=== PATIENT | female | born 1950 | race Caucasian/White ===

== ENCOUNTER 2018-08-25 14:51 | Emergency (ER) | payer OTHER ==
[2018-08-25 15:55] LABS: Absolute Lymphocytes (CBC) 1.1 K/uL (0.7-4.9); Absolute Monocytes 0.5 K/uL (0.1-1.3); Absolute Neutrophil 3.4 K/uL (1.8-8.0); Basophils % 0.6 % (0-1.3); Eosinophils % 1.3 % (0-4.4); Hematocrit 40.8 % (36.0-45.0); Lymphocytes % 20.9 % (15.3-44.8); MPV 7.7 fL (7.6-11.3); Monocytes % 10.5 % (3.3-12.3); RBC Red Blood Cell Count 4.63 M/uL (3.86-4.86)
[2018-08-25] MEDS ORDERED: MAGNE/ALUM HYDROXD 30 ML UCUP ONE (15:55)
[2018-08-25] MEDS ORDERED: LIDOCAINE VISCOUS 2% SOLN 15 ML UDC ONE (15:55)
[2018-08-25 16:09] LABS: ALT/SGPT 69 U/L (12-78); AST/SGOT 78 U/L (15-37); Albumin 3.6 g/dL (3.4-5.0); Alkaline Phosphatase 86 U/L (45-117); BUN Blood Urea Nitrogen 17 mg/dL (7-18); Bicarbonate 28 mmol/L (21-32); Bilirubin Direct 0.4 mg/dL (0-0.2); Bilirubin Total 0.7 mg/dL (0.2-1.0); Glucose Level 146 mg/dL (74-106); Potassium 3.8 mmol/L (3.5-5.1); Protein, Total 7.1 g/dL (6.4-8.2); Sodium Level 138 mmol/L (136-145); Troponin (Emerg Dept Use Only) < 0.02 ng/mL (0.0-0.045)
--- NOTE | 2018-08-25 16:35 | RAD REPORT ---
EXAM DESCRIPTION: RAD - Chest Pa And Lat (2 Views) - 08/25/2018 3:51 pm CLINICAL HISTORY: Cough, chest pain COMPARISON: None. TECHNIQUE: PA and lateral views of the chest were obtained. FINDINGS: The lungs are clear. Heart size is normal and central vasculature is within normal limit s. No pleural effusion or pneumothorax seen. No acute bony finding noted. No aortic abnormality. IMPRESSION: No acute cardiopulmonary process.
--- NOTE | 2018-08-25 17:27 | EDPHYS ---
Physician Documentation [facility] Name: Michael Sanchez Age: 68 yrs Sex: Female : 1950 Arrival Date: 08/25/2018 Time: 14:53 Bed 30 Private MD: Shane Murcia V ED Physician Rober Ling HPI: 08/25 15:52 This 68 yrs old Female presents to ER via Ambulatory with complaints of snw Shortness Of Breath, Chest Wall Pain. 15:52 The patient has shortness of breath s/p coughing spell, tenderness to breast bone, snw worsens with movement. Onset: The symptoms/episode began/occurred suddenly. Duration: The symptoms are continuous. The patient's shortness of breath has no apparent modifying factors. Associated signs and symptoms: The patient has no apparent associated signs or symptoms. Severity of symptoms: At their worst the symptoms were moderate. The patient has not experienced similar symptoms in the past. The patient has been recently seen by a physician: a family practitioner, a psychiatrist. Historical: - PMHx: 15:18 Bipolar disorder; Diabetes - NIDDM; Hyperlipidemia; Hypertension; sg - PSHx: 15:18 Craniotomy; sg - Immunization history:: Adult Immunizations up to date. - Social history:: Smoking status: Patient/guardian denies using tobacco. - Ebola Screening: : Patient negative for fever greater than or equal to 101.5 degrees Fahrenheit, and additional compatible Ebola Virus Disease symptoms Patient denies exposure to infectious person Patient denies travel to an Ebola-affected area in the 21 days before illness onset No symptoms or risks identified at this time. ROS: 15:51 Constitutional: Negative for fever, chills, and weight loss, Eyes: Negative for injury, snw pain, redness, and discharge, ENT: Negative for injury, pain, and discharge, Neck: Negative for injury, pain, and swelling, Respiratory: Negative for shortness of breath, cough, wheezing, and pleuritic chest pain, Abdomen/GI: Negative for abdominal pain, nausea, vomiting, diarrhea, and constipation, Back: Negative for injury and pain, : Negative for injury, bleeding, discharge, and swelling, MS/Extremity: Negative for injury and deformity, Skin: Negative for injury, rash, and discoloration, Neuro: Negative for headache, weakness, numbness, tingling, and seizure, Psych: Negative for depression, anxiety, suicide ideation, homicidal ideation, and hallucinations. 15:51 Cardiovascular: Positive for chest pain, with movement, of the xyphoid area. Exam: 15:51 Constitutional: This is a well developed, well nourished patient who is awake, alert, snw and in no acute distress. Head/Face: Normocephalic, atraumatic. Eyes: Pupils equal round and reactive to light, extra-ocular motions intact. Lids and lashes normal. Conjunctiva and sclera are non-icteric and not injected. Cornea within normal limits. Periorbital areas with no swelling, redness, or edema. ENT: Nares patent. No nasal discharge, no septal abnormalities noted. Tympanic membranes are normal and external auditory canals are clear. Oropharynx with no redness, swelling, or masses, exudates, or evidence of obstruction, uvula midline. Mucous membranes moist. Neck: Trachea midline, no thyromegaly or masses palpated, and no cervical lymphadenopathy. Supple, full range of motion without nuchal rigidity, or vertebral point tenderness. No Meningismus. Chest/axilla: Normal chest wall appearance and motion. Nontender with no deformity. No lesions are appreciated. Cardiovascular: Regular rate and rhythm with a normal S1 and S2. No gallops, murmurs, or rubs. Normal PMI, no JVD. Minimal peripheral edema to ankles. No pulse deficits. Respiratory: Lungs have equal breath sounds bilaterally, clear to auscultation and percussion. No rales, rhonchi or wheezes noted. No increased work of breathing, no retractions or nasal flaring. Abdomen/GI: Soft, non-tender, with normal bowel sounds. No distension or tympany. No guarding or rebound. No evidence of tenderness throughout. Back: No spinal tenderness. No costovertebral tenderness. Full range of motion. Skin: Warm, dry with normal turgor. Normal color with no rashes, no lesions, and no evidence of cellulitis. MS/ Extremity: Pulses equal, no cyanosis. Neurovascular intact. Full, normal range of motion. Neuro: Awake and alert, GCS 15, oriented to person, place, time, and situation. Cranial nerves II-XII grossly intact. Motor strength 5/5 in all extremities. Sensory grossly intact. Cerebellar exam normal. Normal gait. Vital Signs: 15:00 BP 152 / 77; Pulse 87; Resp 19; Temp 98.2; Pulse Ox 99% on R/A; sg 16:08 BP 140 / 88; Pulse 74; Resp 16 S; Pulse Ox 96% on R/A; rv 16:30 BP 166 / 88; Pulse 75; Resp 17 S; Pulse Ox 97% on R/A; rv 17:00 BP 161 / 97; Pulse 78; Resp 15 S; Pulse Ox 96% on R/A; rv 17:30 BP 132 / 101; Pulse 74; Resp 16 S; Pulse Ox 98% on R/A; rv MDM: 15:07 Patient medically screened. [email or web address] 17:27 Data reviewed: vital signs, nurses notes. Data interpreted: Pulse oximetry: on room air snw is 96 %. Interpretation: acceptable. Counseling: I had a detailed discussion with the patient and/or guardian regarding: the historical points, exam findings, and any diagnostic results supporting the discharge/admit diagnosis, lab results, radiology results, the need for outpatient follow up, to return to the emergency department if symptoms worsen or persist or if there are any questions or concerns that arise at home. Special discussion: I have referred the patient to see his PCP for further evaluation of high blood pressure. Based on the history and exam findings, there is no indication for further emergent testing or inpatient evaluation. I discussed with the patient/guardian the need to see the primary care provider for further evaluation of the symptoms. 08/25 15:31 Order name: Troponin (emerg Dept Use Only); Complete Time: 16:14 snw 08/25 15:31 Order name: Chem 7; Complete Time: 16:14 snw 08/25 15:31 Order name: LFT's; Complete Time: 16:14 snw 08/25 15:31 Order name: CBC with Diff; Complete Time: 16:14 snw 08/25 15:31 Order name: Depakote; Complete Time: 16:14 snw 08/25 15:31 Order name: Chest Pa And Lat (2 Views) XRAY; Complete Time: 16:48 snw 08/25 15:32 Order name: SL; Complete Time: 16:06 snw Administered Medications: 15:54 Drug: GI Cocktail without - (Maalox Suspension 30 ml, Lidocaine Liquid 2 % 15 rv ml) Route: PO; 16:07 Follow up: Response: Pain is decreased rv Disposition: 08/25/18 17:26 Discharged to Home. Impression: Chest pain, unspecified, Gastro-esophageal reflux disease. - Condition is Stable. - Discharge Instructions: Nonspecific Chest Pain, Gastroesophageal Reflux Disease, Adult, Hypertension, [place] Diet. - Medication Reconciliation Form, Thank You Letter, Antibiotic Education, Prescription Opioid Use form. - Follow up: Shane Murcia MD; When: 2 - 3 days; Reason: Recheck today's complaints, Continuance of care, Re-evaluation by your physician. Follow up: Emergency Department; When: As needed; Reason: Worsening of condition. Addendum: 08/27/2018 07:40 Co-signature as Attending Physician, Rober Ling MD I agree with the assessment and c chavarria plan of care. Signatures: Dispatcher [employer] EDNirmal Briones, RN Rober Mena MD MD cha Therrien, Shelly, FILM TOUCH UP INSPECTOR-C FILM TOUCH UP INSPECTOR-Csnw Elias Schumacher, RN RN rv Corrections: (The following items were deleted from the chart) 08/25 17:38 17:26 08/25/2018 17:26 Discharged to Home. Impression: Chest pain, unspecified; rv Gastro-esophageal reflux disease. Condition is Stable. Forms are Medication Reconciliation Form, Thank You Letter, Antibiotic Education, Prescription Opioid Use. Follow up: Shane Murcia; When: 2 - 3 days; Reason: Recheck today's complaints, Continuance of care, Re-evaluation by your physician. Follow up: Emergency Department; When: As needed; Reason: Worsening of condition. snw
--- NOTE | 2018-08-25 17:27 | ER ---
Nurse's Notes [facility] Name: Michael Sanchez Age: 68 yrs Sex: Female : 1950 Arrival Date: 08/25/2018 Time: 14:53 Bed 30 Private MD: Shane Murcia V Diagnosis: Chest pain, unspecified;Gastro-esophageal reflux disease Presentation: 08/25 15:00 Presenting complaint: Patient states: Cassandra had chest pain that is worsened by this sg cough, called urgent care and they said it would better to be evaluated by the ER if it is cardiac related, pt complains of having a cough so unsure if the pain is from the heart or just the chest wall, denies N/V/D/Fever. Transition of care: patient was not received from another setting of care. Onset of symptoms was August 25, 2018. Risk Assessment: Do you want to hurt yourself or someone else? Patient reports no desire to harm self or others. Initial Sepsis Screen: Does the patient meet any 2 criteria? No. Patient's initial sepsis screen is negative. Does the patient have a suspected source of infection? Yes: Productive cough/pneumonia. Care prior to arrival: None. 15:00 Method Of Arrival: Ambulatory sg 15:00 Acuity: CHENG 3 sg Triage Assessment: 15:21 Respiratory: Reports shortness of breath Onset: The symptoms/episode began/occurred rv just prior to arrival, the patient has mild shortness of breath. Historical: - PMHx: 15:18 Bipolar disorder; Diabetes - NIDDM; Hyperlipidemia; Hypertension; sg - PSHx: 15:18 Craniotomy; sg - Immunization history:: Adult Immunizations up to date. - Social history:: Smoking status: Patient/guardian denies using tobacco. - Ebola Screening: : Patient negative for fever greater than or equal to 101.5 degrees Fahrenheit, and additional compatible Ebola Virus Disease symptoms Patient denies exposure to infectious person Patient denies travel to an Ebola-affected area in the 21 days before illness onset No symptoms or risks identified at this time. Screenin:20 Abuse screen: Denies threats or abuse. Denies injuries from another. Nutritional rv screening: No deficits noted. Tuberculosis screening: No symptoms or risk factors identified. Fall Risk None identified. Assessment: 15:20 General: Appears in no apparent distress. comfortable, Behavior is calm, cooperative. rv Pain: Denies pain. Neuro: Level of Consciousness is awake, alert, obeys commands, Oriented to person, place, time, situation. Cardiovascular: Rhythm is regular. Respiratory: Airway is patent Respiratory effort is even, Breath sounds are clear bilaterally. GI: No signs and/or symptoms were reported involving the gastrointestinal system. : No signs and/or symptoms were reported regarding the genitourinary system. EENT: No signs and/or symptoms were reported regarding the EENT system. Derm: Skin is intact. Musculoskeletal: No signs and/or symptoms reported regarding the musculoskeletal system. Vital Signs: 15:00 BP 152 / 77; Pulse 87; Resp 19; Temp 98.2; Pulse Ox 99% on R/A; sg 16:08 BP 140 / 88; Pulse 74; Resp 16 S; Pulse Ox 96% on R/A; rv 16:30 BP 166 / 88; Pulse 75; Resp 17 S; Pulse Ox 97% on R/A; rv 17:00 BP 161 / 97; Pulse 78; Resp 15 S; Pulse Ox 96% on R/A; rv 17:30 BP 132 / 101; Pulse 74; Resp 16 S; Pulse Ox 98% on R/A; rv ED Course: 14:53 Patient arrived in ED. as 14:53 Shane Murcia MD is Private Physician. as 15:06 Anna Moreno FNP-C is [facility]. snw 15:06 Rober Ling MD is Attending Physician. snw 15:17 Triage completed. sg 15:18 Arm band placed on. sg 15:21 Patient has correct armband on for positive identification. Placed in gown. Bed in low rv position. Call light in reach. Side rails up X2. Adult w/ patient. welt edge rounder on. Pulse ox on. NIBP on. 15:45 Depakote Sent. rv 15:45 CBC with Diff Sent. rv 15:45 LFT's Sent. rv 15:45 Chem 7 Sent. rv 15:45 Troponin (emerg Dept Use Only) Sent. rv 15:45 Chest Pa And Lat (2 Views) XRAY Sent. rv 15:45 No provider procedures requiring assistance completed. Inserted saline lock: 20 gauge rv in right forearm, using aseptic technique. Blood collected. 15:50 Chest Pa And Lat (2 Views) XRAY In Process Unspecified. EDMS 17:24 Shane Murcia MD is Referral Physician. snw 17:37 IV discontinued, bleeding controlled, No redness/swelling at site. Pressure dressing rv applied. Administered Medications: 15:54 Drug: GI Cocktail without - (Maalox Suspension 30 ml, Lidocaine Liquid 2 % 15 rv ml) Route: PO; 16:07 Follow up: Response: Pain is decreased rv Outcome: 17:26 Discharge ordered by . snw 17:38 Discharged to home ambulatory. rv 17:38 Condition: good 17:38 Discharge instructions given to patient, Instructed on discharge instructions, follow up and referral plans. Demonstrated understanding of instructions, follow-up care. 17:38 Patient left the ED. rv Signatures: Dispatcher [employer] EDMS Nirmal Ashton, RN RN Anna Vizcarra, BOOTH MANAGER-C BOOTH MANAGER-Csnw Dahlia Pandey Ronaldo RN RN rv Corrections: (The following items were deleted from the chart) 16:10 16:09 BP 127 / 63; Pulse 74bpm; Resp 15bpm; Spontaneous; Pulse Ox 98% RA; rv rv
--- NOTE | 2018-08-26 12:36 | EKG ---
Test Date: 2018-08-25 Test Time: 15:07:30 Pick Up Driver: MEASUREMENT RESULTS: Intervals: Rate: 77 DC: 174 QRSD: 88 QT: 386 QTc: 436 [place]: P: 67 DC: 174 QRS: -20 T: 62 INTERPRETIVE STATEMENTS: Normal sinus rhythm Normal ECG Compared to ECG 08/14/2001 09:40:00 No significant changes Electronically Signed On 08-26-18 12:35:25 GRAPHICS PROGRAMMER by Joel Orozco
== END 2018-08-25 17:38 | disposition home or self-care (01) ==
LOC: ER 14:51
DX: K21.9 Gastro-esophageal reflux disease without esophagitis (principal); R07.9 Chest pain, unspecified; E11.9 Type 2 diabetes mellitus without complications; I10 Essential (primary) hypertension; E78.5 Hyperlipidemia, unspecified; F31.9 Bipolar disorder, unspecified
CPT/HCPCS: 36415; 71046; 80048; 80076; 80164; 84484; 85025; 93005; 99284